=== PATIENT | female | born 1990 | race Caucasian/White ===

== ENCOUNTER 2018-12-19 15:04 | Emergency (ER) | payer SELFPAY ==
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
--- OUTSIDE RECORDS SUMMARY | 2018-12-19 15:09 | XMS REPORT | Summary of Care ---
:1990 Author Encounter BRICE Oliveira(RENETTA) [id number] Date(s): 02/25/15 - 02/25/15 [facility] [address] [place] [address]- Discharge Diagnosis: Pelvic pain in Discharge Disposition: Home Physician Attending: Lalo Lawton MD Vital Signs Most recent to oldest [Reference Range]: 1 Height 162.56 cm (02/25/15 9:57 PM) Temperature Oral [96.4-99.1 DegF] 97.7 DegF (02/25/15 9:57 PM) Blood Pressure [90-140/60-90 mmHg] 138/76 mmHg (02/25/15 9:57 PM) Respiratory Rate [14-20 BRMIN] 18 BRMIN (02/25/15 9:57 PM) Peripheral Pulse Rate [60-100 bpm] 107 bpm *HI* (02/25/15 9:57 PM) Weight 78.636 kg (02/25/15 9:57 PM) Body Mass Index 29.76 m2 (02/25/15 9:57 PM) Problem List No data available for this section Allergies, Adverse Reactions, Alerts Substance Reaction Severity Status penicillins Active Medications Macrobid 100 mg oral capsule 100 mg=1 cap, PO, BID, X 7 day, # 14 cap, 0 Refill(s) Start Date: 02/25/15 Stop Date: 03/04/15 Status: Ordered Results URINE AND STOOL Most recent to oldest [Reference Range]: 1 UA Turbidity [Clear] Slight Cloudy (02/25/15 10:07 PM) UA Color [Yellow] Yellow *NA* (02/25/15 10:07 PM) UA pH [5.0-8.0] 6.0 (02/25/15 10:07 PM) UA Spec Grav [<=1.030] >=1.030 *ABN* (02/25/15 10:07 PM) UA Glucose [Negative] Negative (02/25/15 10:07 PM) UA Blood [Negative] Trace *ABN* (02/25/15 10:07 PM) UA Ketones [Negative] Negative *NA* (02/25/15 10:07 PM) UA Protein [Negative] Negative (02/25/15 10:07 PM) UA Urobilinogen [0.1-1.0 EU/dL] 0.2 EU/dL (02/25/15 10:07 PM) UA Bili [Negative] Negative *NA* (02/25/15 10:07 PM) UA Leuk Est [Negative] Small *ABN* (02/25/15 10:07 PM) UA Nitrite [Negative] Negative (02/25/15 10:07 PM) UA WBC [None Seen /HPF] 3-5 /HPF (02/25/15 10:07 PM) UA RBC [0-2 /HPF] 3-5 /HPF *ABN* (02/25/15 10:07 PM) UA Bacteria [None Seen /HPF] Moderate /HPF (02/25/15 10:07 PM) UA Sq Epi [Few /LPF] Moderate /LPF *ABN* (02/25/15 10:07 PM) Immunizations No data available for this section Procedures No data available for this section Social History Social History Type Response Smoking Status Never smoker; Ready to change: No; Concerns about tobacco use in household: No; Exposure to Tobacco Smoke None; Cigarette Smoking Last 365 Days No; Reg Smoking Cessation Counseling No Assessment and Plan No data available for this section
--- OUTSIDE RECORDS SUMMARY | 2018-12-19 15:09 | XMS REPORT ---
:1990 Author [facility] Address [address] [place] [address] [address] [place] [address] Care Team Providers Name Role Phone Unavailable Unavailable Unavailable Problems This patient has no known problems. Allergies, Adverse Reactions, Alerts This patient has no known allergies or adverse reactions. Medications This patient has no known medications.
--- OUTSIDE RECORDS SUMMARY | 2018-12-19 15:09 | XMS REPORT | Summary of Care ---
:1990 Author Organization [facility] Address [id number] [place] [phone]- Encounter HQ Silvia_maria guadalupe(FIN) [id number] Date(s): 04/07/17 - 04/07/[address] [phone] Discharge Diagnosis: Acute chest pain Discharge Disposition: Home or Self Care Attending Physician: Cayla Bueno MD Vital Signs Most recent to oldest [Reference Range]: 1 2 Height 165.1 cm (04/07/17 3:43 PM) Temperature Oral [96.4-99.1 DegF] 98.1 DegF 97.9 DegF (04/07/17 5:53 PM) (04/07/17 3:43 PM) Blood Pressure [90-140/60-90 mmHg] 118/76 mmHg 126/80 mmHg (04/07/17 5:53 PM) (04/07/17 3:43 PM) Respiratory Rate [14-20 BRMIN] 18 BRMIN 20 BRMIN (04/07/17 5:53 PM) (04/07/17 3:43 PM) Peripheral Pulse Rate [60-100 bpm] 89 bpm 97 bpm (04/07/17 5:53 PM) (04/07/17 3:43 PM) Weight 71.364 kg (04/07/17 3:43 PM) Body Mass Index 26.18 m2 (04/07/17 3:43 PM) Problem List Condition Effective Dates Status Health Status Informant Gestational diabetes(Confirmed) Resolved Allergies, Adverse Reactions, Alerts Substance Reaction Severity Status cephalexin Active penicillins Active Medications Saline Flush 0.9% 10 mL, Route: IVP, Drug Form: INJ, Dosing Weight 71.364, kg, PRN, PRN Line Flush , Start date: 04/07/17 15:46:00 CDT, Duration: 30 day, Stop date: 05/07/17 15:45 :00 CDT Notes: (Same as: BD Posiflush) Start Date: 04/07/17 Stop Date: 04/07/17 Status: Discontinued Results ELECTROLYTES Most recent to oldest [Reference Range]: 1 Sodium Lvl [135-145 mEq/L] 141 mEq/L (04/07/17 4:03 PM) Potassium Lvl [3.5-5.1 mEq/L] 3.8 mEq/L (04/07/17 4:03 PM) Chloride Lvl [95-109 mEq/L] 107 mEq/L (04/07/17 4:03 PM) CO2 [24-32 mEq/L] 26 mEq/L (04/07/17 4:03 PM) AGAP [10.0-20.0 mEq/L] 11.8 mEq/L (04/07/17 4:03 PM) CHEM PANEL Most recent to oldest [Reference Range]: 1 Creatinine Lvl [0.50-1.40 mg/dL] 0.78 mg/dL (04/07/17 4:03 PM) eGFR 104 mL/min/1.73m2 1 *NA* (04/07/17 4:03 PM) BUN [7-22 mg/dL] 11 mg/dL (04/07/17 4:03 PM) B/C Ratio [6-25] 14 (04/07/17 4:03 PM) Glucose Lvl [70-99 mg/dL] 100 mg/dL *HI* (04/07/17 4:03 PM) Total Protein [6.4-8.4 g/dL] 7.5 g/dL (04/07/17 4:03 PM) Albumin Lvl [3.5-5.0 g/dL] 3.7 g/dL (04/07/17 4:03 PM) Globulin [2.7-4.2 g/dL] 3.8 g/dL (04/07/17 4:03 PM) A/G Ratio [0.7-1.6] 1.0 (04/07/17 4:03 PM) Calcium Lvl [8.5-10.5 mg/dL] 8.0 mg/dL *LOW* (04/07/17 4:03 PM) Magnesium Lvl [1.8-2.4 mg/dL] 1.9 mg/dL (04/07/17 4:03 PM) ALT [0-65 unit/L] 48 unit/L (04/07/17 4:03 PM) AST [0-37 unit/L] 19 unit/L (04/07/17 4:03 PM) Alk Phos [39-136 unit/L] 127 unit/L (04/07/17 4:03 PM) Bili Total [0.2-1.3 mg/dL] 0.8 mg/dL (04/07/17 4:03 PM) 1Result Comment: The eGFR is calculated using the CKD-EPI formula. In most young , healthy individualsthe eGFR will be >90 mL/min/1.73m2. The eGFR declines with age. An eGFR of 60-89 may be normal in some populations, particularly the elderly, for whom the CKD-EPI formula has not been extensively validated. Use of the eGFR is not recommended in the following populations: Individuals with unstable creatinine concentrations, including patients and those with serious co-morbid conditions. Patients with extremes in muscle mass or diet. The data above are obtained from the National Kidney Disease Education Program ( NKDEP) which additionally recommends that when the eGFR is used in patients with extremes of body mass index for purposesof drug dosing, the eGFR should be multiplied by the estimated BMI.CARDIAC ENZYMES Most recent to oldest [Reference Range]: 1 Total CK [12-191 unit/L] 70 unit/L (04/07/17 4:03 PM) CK MB [0.5-3.6 ng/mL] <0.5 ng/mL (04/07/17 4:03 PM) CK MB Index [0.0-2.5] <0.7 (04/07/17 4:03 PM) Troponin-I [0.00-0.40 ng/mL] <0.02 ng/mL (04/07/17 4:03 PM) ENDOCRINOLOGY Most recent to oldest [Reference Range]: 1 S Preg [Negative] Negative *NA* (04/07/17 4:03 PM) HEMATOLOGY Most recent to oldest [Reference Range]: 1 WBC [3.7-10.4 K/CMM] 10.3 K/CMM (04/07/17 4:03 PM) RBC [4.20-5.40 M/CMM] 4.43 M/CMM (04/07/17 4:03 PM) Hgb [12.0-16.0 g/dL] 13.4 g/dL (04/07/17 4:03 PM) Hct [36.0-48.0 %] 39.9 % (04/07/17 4:03 PM) MCV [80.0-98.0 fL] 90.0 fL (04/07/17 4:03 PM) MCH [27.0-31.0 pg] 30.2 pg (04/07/17 4:03 PM) MCHC [32.0-36.0 g/dL] 33.6 g/dL (04/07/17 4:03 PM) RDW [11.5-14.5 %] 14.3 % (04/07/17 4:03 PM) Platelet [133-450 K/CMM] 174 K/CMM (04/07/17 4:03 PM) MPV [7.4-10.4 fL] 11.2 fL *HI* (04/07/17 4:03 PM) Segs [45.0-75.0 %] 55.1 % (04/07/17 4:03 PM) Lymphocytes [20.0-40.0 %] 34.8 % (04/07/17 4:03 PM) Monocytes [2.0-12.0 %] 5.8 % (04/07/17 4:03 PM) Eosinophils [0.0-4.0 %] 3.5 % (04/07/17 4:03 PM) Basophils [0.0-1.0 %] 0.8 % (04/07/17 4:03 PM) Segs-Bands # [1.5-8.1 K/CMM] 5.7 K/CMM (04/07/17 4:03 PM) Lymphocytes # [1.0-5.5 K/CMM] 3.6 K/CMM (04/07/17 4:03 PM) Monocytes # [0.0-0.8 K/CMM] 0.6 K/CMM (04/07/17 4:03 PM) Eosinophils # [0.0-0.5 K/CMM] 0.4 K/CMM (04/07/17 4:03 PM) Basophils # [0.0-0.2 K/CMM] 0.1 K/CMM (04/07/17 4:03 PM) PT [12.0-14.7 seconds] 13.9 seconds (04/07/17 4:03 PM) INR [0.85-1.17] 1.05 (04/07/17 4:03 PM) D-Dimer 0.27 ug/mL FEU *NA* (04/07/17 4:03 PM) PTT [22.9-35.8 seconds] 29.1 seconds (04/07/17 4:03 PM) Immunizations No data available for this [...]
--- OUTSIDE RECORDS SUMMARY | 2018-12-19 15:09 | XMS REPORT | Summary of Care ---
:1990 Author Organization [facility] Address [id number] [place] [phone]- Encounter HQ Tee(FIN) [id number] Date(s): 04/15/16 - 04/15/[address] [phone] Discharge Diagnosis: Acute UTI Discharge Disposition: Home Attending Physician: Javier Dixon MD PHD Vital Signs Most recent to oldest [Reference Range]: 1 2 Temperature Oral [96.4-99.1 DegF] 97.4 DegF 98.1 DegF (04/15/16 3:01 PM) (04/15/16 10:45 AM) Blood Pressure [90-140/60-90 mmHg] 111/56 mmHg 115/62 mmHg (04/15/16 3:01 PM) (04/15/16 10:45 AM) Respiratory Rate [14-20 BRMIN] 16 BRMIN 16 BRMIN (04/15/16 3:01 PM) (04/15/16 10:45 AM) Peripheral Pulse Rate [60-100 bpm] 83 bpm 78 bpm (04/15/16 3:01 PM) (04/15/16 10:45 AM) Weight 70.909 kg (04/15/16 10:45 AM) Problem List No data available for this section Allergies, Adverse Reactions, Alerts Substance Reaction Severity Status penicillins Active Medications cefTRIAXone + sodium chloride 0.9% INJ 100 mL 1 gm, Route: IVPB, ONCE, Dosing Weight 70.909, kg, Priority: STAT, Start date: 04/15/16 14:13:00 CDT, Stop date: 04/15/16 14:13:00 CDT Notes: (Same As: Rocephin).Use with 100 mL NS and infuse over 30 min MEDICATION WASTE Product Size: 1000 mgProduct Wasted: _0__ mg Start Date: 04/15/16 Stop Date: 04/15/16 Status: CompletedNS (Bolus) IV 1,000 mL, 1,000 ml/hr, Infuse Over: 1 hr, Route: IV, 1,000, Drug form: INJ, ONCE , Priority: STAT, Dosing Weight 70.909 kg, Start date: 04/15/16 13:31:00 CDT, Duration: 1 doses or times, Stop date: 04/15/16 13:31:00 CDT Start Date: 04/15/16 Stop Date: 04/15/16 Status: CompletedVantin 200 mg oral tablet 200 mg=1 tab, PO, Q12H, X 7 day, # 14 tab, 0 Refill(s) Start Date: 04/15/16 Stop Date: 04/22/16 Status: Ordered Results ELECTROLYTES Most recent to oldest [Reference Range]: 1 Sodium Lvl [135-145 mEq/L] 138 mEq/L (04/15/16 1:35 PM) Potassium Lvl [3.5-5.1 mEq/L] 4.0 mEq/L (04/15/16 1:35 PM) Chloride Lvl [95-109 mEq/L] 107 mEq/L (04/15/16 1:35 PM) CO2 [24-32 mEq/L] 25 mEq/L (04/15/16 1:35 PM) AGAP [10.0-20.0 mEq/L] 10.0 mEq/L (04/15/16 1:35 PM) CHEM PANEL Most recent to oldest [Reference Range]: 1 Creatinine Lvl [0.50-1.40 mg/dL] 0.68 mg/dL (04/15/16 1:35 PM) eGFR 121 mL/min/1.73m2 1 *NA* (04/15/16 1:35 PM) BUN [7-22 mg/dL] 5 mg/dL *LOW* (04/15/16 1:35 PM) B/C Ratio [6-25] 7 (04/15/16 1:35 PM) Glucose Lvl [70-99 mg/dL] 75 mg/dL (04/15/16 1:35 PM) Total Protein [6.4-8.4 g/dL] 7.2 g/dL (04/15/16 1:35 PM) Albumin Lvl [3.5-5.0 g/dL] 3.6 g/dL (04/15/16 1:35 PM) Globulin [2.0-4.0 g/dL] 3.6 g/dL (04/15/16 1:35 PM) A/G Ratio [0.7-1.6] 1.0 (04/15/16 1:35 PM) Calcium Lvl [8.5-10.5 mg/dL] 8.3 mg/dL *LOW* (04/15/16 1:35 PM) ALT [0-65 unit/L] 65 unit/L (04/15/16 1:35 PM) AST [0-37 unit/L] 31 unit/L (04/15/16 1:35 PM) Alk Phos [39-136 unit/L] 139 unit/L *HI* (04/15/16 1:35 PM) Bili Total [0.2-1.3 mg/dL] 0.5 mg/dL (04/15/16 1:35 PM) 1Result Comment: The eGFR is calculated [...] eGFR should be multiplied by the estimated BMI.URINE CHEM Most recent to oldest [Reference Range]: 1 U Preg [Negative] Positive *ABN* (04/15/16 1:35 PM) URINE AND STOOL Most recent to oldest [Reference Range]: 1 UA Turbidity [Clear] Slight Cloudy (04/15/16 1:35 PM) UA Color [Yellow] Yellow *NA* (04/15/16 1:35 PM) UA pH [5.0-8.0] 7.0 (04/15/16 1:35 PM) UA Spec Grav [<=1.030] 1.010 (04/15/16 1:35 PM) UA Glucose [Negative] Negative (04/15/16 1:35 PM) UA Blood [Negative] Trace *ABN* (04/15/16 1:35 PM) UA Ketones [Negative] Negative *NA* (04/15/16 1:35 PM) UA Protein [Negative] Negative (04/15/16 1:35 PM) UA Urobilinogen [0.1-1.0 EU/dL] 0.2 EU/dL (04/15/16 1:35 PM) UA Bili [Negative] Negative *NA* (04/15/16 1:35 PM) UA Leuk Est [Negative] Large *ABN* (04/15/16 1:35 PM) UA Nitrite [Negative] Positive *ABN* (04/15/16 1:35 PM) UA WBC [None Seen /HPF] 11-20 /HPF *ABN* (04/15/16 1:35 PM) UA RBC [0-2 /HPF] 3-5 /HPF *ABN* (04/15/16 1:35 PM) UA Bacteria [None Seen /HPF] Moderate /HPF (04/15/16 1:35 PM) UA Sq Epi [Few /LPF] Few /LPF (04/15/16 1:35 PM) UA Mucus [None Seen /LPF] Few /LPF (04/15/16 1:35 PM) HEMATOLOGY Most recent to oldest [Reference Range]: 1 WBC [3.7-10.4 K/CMM] 14.2 K/CMM *HI* (04/15/16 1:35 PM) RBC [4.20-5.40 M/CMM] 4.56 M/CMM (04/15/16 1:35 PM) Hgb [12.0-16.0 g/dL] 13.3 g/dL (04/15/16 1:35 PM) Hct [36.0-48.0 %] 40.9 % (04/15/16 1:35 PM) MCV [80.0-98.0 fL] 89.8 fL (04/15/16 1:35 PM) MCH [27.0-31.0 pg] 29.2 pg (04/15/16 1:35 PM) MCHC [32.0-36.0 g/dL] 32.5 g/dL (04/15/16 1:35 PM) RDW [11.5-14.5 %] 16.2 % *HI* (04/15/16 1:35 PM) Platelet [133-450 K/CMM] 133 K/CMM (04/15/16 1:35 PM) MPV [7.4-10.4 fL] 11.2 fL *HI* (04/15/16 1:35 PM) Segs [45.0-75.0 %] 66.0 % (04/15/16 1:35 PM) Lymphocytes [20.0-40.0 %] 25.2 % (04/15/16 1:35 PM) Monocytes [2.0-12.0 %] 6.5 % (04/15/16 1:35 PM) Eosinophils [0.0-4.0 %] 1.9 % (04/15/16 1:35 PM) Basophils [0.0-1.0 %] 0.4 % (04/15/16 1:35 PM) Segs-Bands # [1.5-8.1 K/CMM] 9.4 K/CMM *HI* (04/15/16 1:35 PM) Lymphocytes # [1.0-5.5 K/CMM] 3.6 K/CMM (04/15/16 1:35 PM) Monocytes # [0.0-0.8 K/CMM] 0.9 K/CMM *HI* (04/15/16 1:35 PM) Eosinophils # [0.0-0.5 K/CMM] 0.3 K/CMM (04/15/16 1:35 PM) Basophils # [0.0-0.2 K/CMM] 0.1 K/CMM (04/15/16 1:35 PM) Immunizations No data available for this [...]
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
[2018-12-19] MEDS ORDERED: TRAMADOL HCL 50 MG TAB ONE (17:48)
[2018-12-19 20:10] LABS: Urine Blood 2+ (NEG); Urine Glucose NEGATIVE (NEG); Urine Protein NEGATIVE (NEG)
--- NOTE | 2018-12-20 07:15 | EKG ---
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
== END 2018-12-19 18:23 | disposition home or self-care (01) ==
LOC: ER 15:04
DX: M79.10 Myalgia, unspecified site (principal); R07.9 Chest pain, unspecified; V43.52XA Car driver injured in collision with other type car in traffic accident, initial encounter; Z88.0 Allergy status to penicillin; Z88.8 Allergy status to other drugs, medicaments and biological substances
CPT/HCPCS: 72040; 72070; 72100; 81003; 81025; 93005; 99283